=== PATIENT | female | born 1965 | race Caucasian/White ===

== ENCOUNTER 2019-09-01 14:19 | Observation (INO) | payer OTHER, SELFPAY ==
[2019-09-01 14:20] VITALS: BP 157/94; PULSE 100; RESP 18; TEMP 36.4; O2SAT 98; BMI 39.6
--- NOTE | 2019-09-01 14:34 | EKG12_ITS ---
Test Reason : CP Blood Pressure : / mmHG Vent. Rate : 102 BPM Atrial Rate : 102 BPM P-R Int : 166 ms QRS Dur : 098 ms QT Int : 338 ms P-R-T Axes : 039 010 038 degrees QTc Int : 440 ms Sinus tachycardia Otherwise normal ECG Confirmed by GABY LAWRENCE, SEGUNDO ([id number]), editor magazine ALLISON LU ([id number]) on 09/02/2019 10:33:38 AM Referred By: Laura Ayala Confirmed By:SEGUNDO GRIFFIN MD
--- NOTE | 2019-09-01 14:35 | RAD_ITS ---
STUDY: X-RAY CHEST REASON FOR EXAM: Female, 53 years old. INTERMITTENT CP FOR SEVERAL DAYS TECHNIQUE: AP COMPARISON: None. FINDINGS: EKG leads project over the chest. The lungs are clear and expanded. There is no demonstrated pleural abnormality. Normal size heart. Normal mediastinum and noe. Normal visualized pulmonary arteries. Normal visualized aortic arch and descending thoracic aorta. Normal visualized thoracic spine. Normal visualized ribs, clavicles, and shoulders. There is no demonstrated abnormality of the visualized soft tissue structures of the upper abdomen. RAD/Chest 1 View (Portable) IMPRESSION: Nonacute portable x-ray examination of the chest. Electronically Signed: Hong Locke MD (Brooks) at 14:58 EST , Service support ,
--- NOTE | 2019-09-01 14:35 | ED.VIS.GEN ---
History of Present Illness Chief Complaint: Chest Pain Detail of Chief Complaint: Chest pain, shortness of breath Informant: Patient, Significant Other Onset: Days Context: Gradual Onset Timing: Waxes and wanes Current Severity: Mild Maximum Severity: Moderate Narrative: Patient presents with dyspnea on exertion over the past week or so. She has developed over the past couple of days intermittent chest pain. It seems to be worse with exertion and better at rest. Today she describes sternal tightness that radiated up into her neck. She was vacuuming at the time and states pain resolved within 10 minutes of sitting down to rest. - Past Medical History (1) Hypertension Status: Chronic (2) Depression Status: Chronic (3) GERD (gastroesophageal reflux disease) Status: Chronic Past Medical History - Allergies and Home Meds Allergies/Adverse Reactions: Allergies No Known Allergies Allergy (Verified 09/01/19 15:12) Primary Care Physician: Rodney Doctor,Out of [NON-STAFF] - Surgical History: cholecystectomy, herniorrhaphy, hysterectomy Smoking Status: Never smoker Review of Systems General: Denies: Chills, Fever Eyes: Denies: Visual changes - bilaterally ENT: Denies: Bilateral ear pain Cardiovascular: Reports: Chest pain Respiratory: Reports: Dyspnea. Denies: Cough Gastrointestinal: Denies: Abdominal pain, Nausea, Vomiting, Diarrhea Genitourinary: Denies: Dysuria Skin: Denies: Rash Neurological: Denies: Headache Hematologic: Denies: Easy bruising Allergy: Denies: Uticaria Physical Exam Vital Signs/Narrative: Vital Signs Temp Pulse Resp BP Pulse Ox 09/01/19 14:20 97.6 F L 100 18 157/94 H 98 Inital Vital Signs reviewed: Yes General: Well nourished, Well developed Head: Normocephalic ENT: Moist mucous membranes Neck: Supple Cardiovascular: Regular rate, Regular rhythm Respiratory: No distress, CTA bilaterally Abdomen: Soft, Nontender, Nondistended Extremities: Nontender, No edema Skin: Normal color, No rash Neurological: Alert, Oriented x3 Psychological: Normal affect Diagnostic/Tx/Re-eval Impressions Chest X-Ray 09/01/19 14:35 IMPRESSION: Nonacute portable x-ray examination of the chest. Electronically Signed: Hong Locke MD (Brooks) at 14:58 EST , Service support , 09/01/19 14:35 Chest 1 View (Portable) [RAD] Stat Laboratory Results 09/01/19 09/01/19 09/01/19 14:26 14:26 14:26 WBC 9.4 RBC 4.81 Hgb 14.7 Hct 43.1 MCV 89.6 MCH 30.6 MCHC 34.1 RDW Std Deviation 41.1 RDW Coeff of Krystal 12.4 Plt Count 243 MPV 8.4 Immature Gran % (Auto) 0.300 Neut % (Auto) 52.6 Lymph % (Auto) 35.9 Colbert % (Auto) 9.4 Eos % (Auto) 1.3 Baso % (Auto) 0.5 Absolute Neuts (auto) 5.0 Absolute Lymphs (auto) 3.38 Nucleated RBC % 0 D-Dimer Quant (PE/DVT) 0.50 H Sodium 140 Potassium 3.2 L Chloride 106 Carbon Dioxide 28.0 Anion Gap 6 BUN 12 Creatinine 0.88 Estim Creat Clear Calc 69.21 Est GFR (MDRD) Af Amer 86 Est GFR (MDRD) Non-Af 71 BUN/Creatinine Ratio 13.6 Glucose 114 H Calcium 9.8 Troponin I < 0.015 B-Natriuretic Peptide 09/01/19 14:26 WBC RBC Hgb Hct MCV MCH MCHC RDW Std Deviation RDW Coeff of Krystal Plt Count MPV Immature Gran % (Auto) Neut % (Auto) Lymph % (Auto) Colbert % (Auto) Eos % (Auto) Baso % (Auto) Absolute Neuts (auto) Absolute Lymphs (auto) Nucleated RBC % D-Dimer Quant (PE/DVT) Sodium Potassium Chloride Carbon Dioxide Anion Gap BUN Creatinine Estim Creat Clear Calc Est GFR (MDRD) Af Amer Est GFR (MDRD) Non-Af BUN/Creatinine Ratio Glucose Calcium Troponin I B-Natriuretic Peptide 17.2 - EKG Initial EKG Interpretation: Sinus Tachycardia - Sinus tach at 102. No acute ischemia. - Medical Decision Making Patient was given aspirin on arrival. She had no further symptoms while in the emergency room. Blood work is unremarkable but her symptoms are certainly concerning. She was given potassium replacement here and I will discuss her case with the hospitalist for admission. ED Disposition - Plan for ED Patient: Disposition: Acute Care Hospital [facility] Diagnosis: Chest pain Referrals: [facility] Doctor,Out of [NON-STAFF] -
--- NOTE | 2019-09-01 14:37 | NURSING ---
NO OLD EKGS
[2019-09-01 14:45] LABS: Absolute Lymphocyte Count 3.38 X10^3/uL (0.83-4.51); Basophil# 0.05 X10^3/uL; Basophil% 0.5 % (0-1); Eosinophil# 0.12 X10^3/uL; Eosinophils% 1.3 % (0-5); Hematocrit 43.1 % (37-47); Hemoglobin 14.7 g/dL (12.0-15.0); Lymphocyte # 3.38 X10^3/ul (4.0); Lymphocyte % 35.9 % (19-41); Mean Corp Hgb Conc 34.1 g/dL (32-36); Mean Corpuscular Hgb 30.6 pg (27.0-32.0); Mean Corpuscular Volume 89.6 fL (81-99); Mean Platelet Vol. 8.4 fl (6.2-12.0); Monocyte# 0.88 X10^3/uL; Monocyte% 9.4 % (0-10); NRBC Flagged by Analyzer 0 % (0-5); Neutrophil # 4.95 X10^3/uL (2.7-7.7); Neutrophil % 52.6 % (47-70); Platelet Count 243 K/mm3 (150-450); RBC Distribution Width CV 12.4 % (11.6-14.6); RBC Distribution Width SD 41.1 fl (35.1-43.9); Red Blood Count 4.81 M/mm3 (4.2-5.4); White Blood Count 9.4 K/mm3 (4.4-11.0)
[2019-09-01 15:08] LABS: Anion Gap 6 (5-15); BUN 12 mg/dL (7-18); BUN/Creat Ratio 13.6 RATIO (10-20); Calcium,Total 9.8 mg/dL (8.5-10.1); Chloride 106 mmol/L (98-107); Creatinine, Serum 0.88 mg/dL (0.55-1.02); EST Glomerular Filtration Rate 71 mL/min (>60); Est Glom Filt Rate - Afr Amer 86 mL/min (>60); Estimated Creatinine Clearance 69.21 ml/min; Glucose 114 mg/dL (74-106); Potassium 3.2 mmol/L (3.5-5.1); Sodium Level 140 mmol/L (136-145)
[2019-09-01] MEDS: 0.9% Normal Saline 1,000 ML 150 ML IV (15:12)
[2019-09-01] MEDS: Aspirin 81 MG TAB.CHEW 324 MG PO (15:12)
[2019-09-01 15:15] LABS: BNP,B-Type NATRIURETIC PEPTIDE 17.2 pg/mL (0-100)
[2019-09-01 15:17] VITALS: BP 139/83; PULSE 90; RESP 18; O2SAT 96
--- NOTE | 2019-09-01 15:29 | NURSING ---
PCU CP WHITE
--- NOTE | 2019-09-01 15:47 | EKG12_ITS ---
Test Reason : CP Blood Pressure : / mmHG Vent. Rate : 084 BPM Atrial Rate : 084 BPM P-R Int : 176 ms QRS Dur : 098 ms QT Int : 372 ms P-R-T Axes : 039 005 026 degrees QTc Int : 439 ms Normal sinus rhythm Normal ECG No previous ECGs available Confirmed by GABY LAWRENCE, SEGUNDO ([id number]), production editor VENTURA HUDSON ([id number]) on 09/07/2019 9:21:29 AM Referred By: Laura Ayala Confirmed By:SEGUNDO GRIFFIN MD
--- NOTE | 2019-09-01 16:06 | PCM.HP.STD ---
Problem List (1) Chest pain Status: Acute Qualifiers: Chest pain type: unspecified Qualified Code(s): R07.9 - Chest pain, unspecified (2) Anxiety and depression Status: Chronic (3) Obesity (BMI 30-39.9) Status: Chronic (4) Former tobacco use Status: Chronic (5) Hypertension Status: Chronic Qualifiers: Hypertension type: essential hypertension Qualified Code(s): I10 - Essential (primary) hypertension (6) GERD (gastroesophageal reflux disease) Status: Chronic Qualifiers: Esophagitis presence: esophagitis presence not specified Qualified Code(s): K21.9 - Gastro-esophageal reflux disease without esophagitis History of Present Illness Date of Admission: 09/01/19 Chief Complaint: Chest pain/tightness The patient is a 53 y/o F w/ PMHx: Anxiety and Depression, Obesity, Former Tobacco use, HTN, GERD, Hx small remote PE while on OCPs, Hx Gestational DM who presents to the [facility] ED on 09/01/18 with history of midsternal chest discomfort described as a tightness over the last 2 days, intermittent, more so with activity, rated 4 out of 10 at its most severe with associated dyspnea with no nausea, emesis or diaphoresis with radiation up the right neck with improvement with rest after approximately 10 minutes. In the ED patient notes chest discomfort 0 out of 10. She notes that her blood pressure is very well controlled normally and usually 1 10-1 20 over 70s but has been increased over the last 2 days. She does state that she intermittently feels fluttering in her chest and this is been longstanding, denies racing sensation, denies any market weight loss and denies any concurrent chest discomfort with this until recently over the last 2 days as noted. Work-up in the ED included T 97.6, heart rate 100, BP 157/94, respiratory rate 18, 98% on room air, CBC unremarkable, d-dimer 0.5 and when recalculated for age normal value, BMP potassium 3.2, glucose 114, troponin less than 0.015, BNP 17.2, EKG with no acute evidence of ischemia, chest x-ray with no acute cardiopulmonary findings. In the ED patient administered aspirin, potassium supplementation 40 mill equivalent x1 as well as normal saline. Past Medical History Past Medical History (Chronic Problems): Chronic Problems Hypertension (Chronic) Depression (Chronic) GERD (gastroesophageal reflux disease) (Chronic) Anxiety and depression (Chronic) Obesity (BMI 30-39.9) (Chronic) Former tobacco use (Chronic) Allergies No Known Allergies Allergy (Verified 09/01/19 15:12) Home Medications: Ambulatory Orders Medication Instructions Recorded ALPRAZolam [Xanax] 1 mg PO BID PRN PRN 09/01/19 Amlodipine [Norvasc] 5 mg PO DAILY 09/01/19 Estradiol [Vivelle-Dot, Estraderm,] 0.05 mg TRANSDERM. .2X/WEEK 09/01/19 Multivitamin [Daily Multiple 1 ea PO DAILY 09/01/19 Vitamin] Omeprazole 40 mg PO DAILY 09/01/19 Paroxetine [Paxil] 20 mg PO DAILY 09/01/19 Surgical History: - - Hysterectomy, cholecystectomy, hernia repair. Psychiatric History: Anxiety, Depression [employer] History: No pertinent [employer] history Lives: Alone Smoking Status: Former smoker - Patient quit cigarette tobacco usage approximately 6 years prior but prior to this smoked 1 pack/day cigarette tobacco usage since she was a teenager. Tobacco Use: Non-smoker Alcohol: Occasional Drugs: None - *Family History Maternal History Items: - - Patient states she does not know her biological maternal family history. Paternal History Items: - - Patient notes that she has a paternal family history of thyroid disease. She states her father's 2 brothers have a history of heart disease, diabetes and high blood pressure. Review of Systems Constitutional: Reports: Fatigue. Denies: Chills, Fever, Weight Change HEENT: Reports: - - R jaw pain. Denies: Head Aches, Sinus Congestion, Sinus Drainage Cardiovascular: Reports: Chest Pain, Chest Tightness. Denies: Chest Pressure, Light Headedness, Orthopnea, Palpitations, Syncope Respiratory: Reports: Shortness of Breath, Shortness of breath upon exertion. Denies: Cough, Shortness of breath at rest, Sputum production, Wheezing Gastrointestinal: Denies: Abdominal Pain, Nausea, Vomiting Genitourinary: Denies: Dysuria Musculoskeletal: Denies: Joint Pain, Joint Tenderness Skin: Denies: Rash, Wounds Neurological: Denies: Numbness, Tingling, Focal weakness Psychiatric: Reports: Anxiety, Depression. Denies: Homicidal Ideations, Suicidal Ideations Hematologic/ Lymphatic: Denies: Easy Bruising, Easy Bleeding VTE Information - Inpt Only VTE Present on Admission: No VTE Mechan Device Prophylaxis: SCD's VTE Pharm Prophylaxis ordered?: Yes Patient Problems: Active and Suspected Problems Chest pain (Acute) Subjective: Seated upright in ED bed, notes chest tightness is completely resolved. Objective: Physical Examination: General: awake, alert, oriented x 3 and cooperative, seated upright in the ED bed in no apparent distress, notes chest pain has resolved. Skin: normal color, turgor, no icterus, cyanosis. HEENT: AT/NC, EOMI, PERRLA, MMM, no carotid bruits or JVD noted. Lungs: CTA bilaterally, moderate effort, moderate decrease BL bases, no rales, ronchi or wheezing. Heart: Regular rate and rhythm; no gallop, rub audible. Abdomen: soft, obese, NTTP, ND, normal BS, no HSM. Extremities: no cyanosis, clubbing, or edema. Neurological: patient awake, alert, oriented x 3; cognitive function intact; pupils equally reactive to light and accomodation; cranial nerves II-XII grossly normal, moving all 4 extremities, no focal deficits, strength preserved. Psychiatric: affect appears normal, no acute evidence of depressive or anxiety feelings. - Physical Exam Vitals/I&O's: Vital Signs Temp Pulse Resp BP Pulse Ox 97.6 F L 90 18 139/83 H 96 09/01/19 14:20 09/01/19 15:17 09/01/19 15:17 09/01/19 15:17 09/01/19 15:17 Oxygen Delivery Method Room Air Weight: 246 lb 0.574 oz Body Mass Index (BMI) 39.6 Laboratory Results 09/01/19 14:26: WBC 9.4, RBC 4.81, Hgb 14.7, Hct 43.1, MCV 89.6, MCH 30.6, MCHC 34.1, RDW Std Deviation 41.1, RDW Coeff of Krystal 12.4, Plt Count 243, MPV 8.4, Immature Gran % (Auto) 0.300, Neut % (Auto) 52.6, Lymph % (Auto) 35.9, [place] % (Auto) 9.4, Eos % (Auto) 1.3, Baso % (Auto) 0.5, Absolute Neuts (auto) 5.0, Absolute Lymphs (auto) 3.38, Nucleated RBC % 0 09/01/19 14:26: D-Dimer Quant (PE/DVT) 0.50 H 09/01/19 14:26: Sodium 140, Potassium 3.2 L, Chloride 106, Carbon Dioxide 28.0, Anion Gap 6, BUN 12, Creatinine 0.88, Estim Creat Clear Calc 69.21, Est GFR (MDRD) Af Amer 86, Est GFR (MDRD) Non-Af 71, BUN/Creatinine Ratio 13.6, Glucose 114 H, Calcium 9.8, Troponin I < 0.015 09/01/19 14:26: B-Natriuretic Peptide 17.2 Current Medications Acetaminophen (Tylenol) 650 mg PO Q6H PRN PRN PRN Reason: Non-cardiac pain (4-10/10) Hydrocodone Bitart/Acetaminophen ([place] 5mg-325mg) 1 - 2 tablet PO Q4H PRN PRN PRN Reason: Pain Score 4-10/10 Al Hydroxide/Mg Hydroxide (Mylanta Ii) 15 - 30 ml PO Q4H PRN PRN PRN Reason: INDIGESTION Albuterol Sulfate (Ventolin Aerosols) 2.5 mg INHALATION Q2H PRN PRN PRN Reason: dyspnea, wheezing Alprazolam (Xanax) 1 mg PO BID PRN PRN PRN Reason: ANXIETY Amlodipine Besylate (Norvasc) 5 mg PO DAILY IDA Aspirin (Ecotrin) 81 mg PO DAILY@0800 IDA Enoxaparin Sodium (Lovenox) 40 mg SC DAILY IDA Glucagon () 1 mg IM .X1 PRN PRN Reason: Hypoglycemia Hydralazine HCl (Apresoline Iv) 10 mg IV Q4H PRN PRN PRN Reason: SBP > 160 Sodium Chloride () 1,000 mls @ 100 mls/hr IV .Q10H IDA Dextrose (Dextrose 10%-Water) 250 mls @ 999 mls/hr IV .Q16M PRN; Protocol PRN Reason: HYPOGLYCEMIA Magnesium Hydroxide (Milk Of Magnesia) 30 ml PO DAILY PRN PRN Reason: Constipation Melatonin (Melatonin) 3 mg PO QHS PRN PRN PRN Reason: INSOMNIA Morphine Sulfate () 1 - 2 mg IV Q4H PRN PRN PRN Reason: Pain Score 1-10/10 Nitroglycerin (Nitrostat) 0.4 mg SUBLINGUAL Q5M PRN PRN Reason: CARDIAC/CHEST PAIN Ondansetron HCl (Zofran) 4 mg IV Q8H PRN PRN PRN Reason: NAUSEA/VOMITING Pantoprazole Sodium (Protonix) 40 mg PO DAILY IDA Paroxetine HCl (Paxil) 20 mg PO DAILY [facility] Assessment/Plan All Active Problems Chest pain (Acute) The patient is a 53 y/o F w/ PMHx: Anxiety and Depression, Obesity, Former Tobacco use, HTN, GERD, Hx small remote PE while on OCPs, Hx Gestational DM who presents to the [facility] ED on 09/01/18 with history of midsternal chest discomfort described as a tightness over the last 2 days, intermittent, more so with activity, rated 4 out of 10 at its most severe with associated dyspnea with no nausea, emesis or diaphoresis with radiation up the right neck with improvement with rest after approximately 10 minutes. 1. Chest Pain, Fluttering Sensation: EKG in ED sinus rhythm with no acute evidence of ischemia, CXR w/ no acute cardiopulmonary findings, initial trop normal x1. Will admit to the PCU, place on a monitored bed to assure no acute myocardial infarction with serial cardiac enzymes and EKGs. If cardiac enzymes and repeat EKGs remain unremarkable will pursue cardiac stress testing in a.m. TSH requested. FLP in AM. Magnesium pending with supplementation if necessary. ASA, NG, morphine. 2. Hypokalemia: Admission K+ 3.2, supplementation given, repeat level in AM. 3. Hypertension: Continue home regimen including Norvasc, PRN hydralazine. 4. Obesity: Weight loss and lifestyle changes encouraged, nutrition consulted. 5. Anxiety and depression: We will continue patient on Paxil as well as Xanax regimen. 6. Continue former tobacco use: Patient with 1 pack/day tobacco usage since she was a teenager, quitting approximately 6 years prior, if cardiac evaluation unremarkable would benefit from consideration of pulmonary function testing outpatient. 7. History of PE: History of very small remote PE while on OCPs, d-dimer normal for age. 8. GERD: Continue home PPI. 9. DVT prophylaxis: SCDs, Lovenox. Code Visit OBSV E&M: 64200 Initial observation care L3
[2019-09-01 16:34] VITALS: BP 141/79; PULSE 81; RESP 18; TEMP 36.6; O2SAT 100; BMI 39.4; BMI 39.5
[2019-09-01 17:04] LABS: Magnesium 1.9 mg/dL (1.6-2.6); Thyroid Stim Hormone (TSH) 3.06 uIU/mL (0.358-3.74)
[2019-09-01 17:37] VITALS: PULSE 92
[2019-09-01 18:59] VITALS: PULSE 84
[2019-09-01 19:40] VITALS: BP 136/76; PULSE 80; RESP 16; TEMP 36.4; O2SAT 98
[2019-09-01] MEDS: 0.9% Normal Saline 1,000 ML 100 ML IV (20:57)
[2019-09-01] MEDS: Pantoprazole Sodium 40 MG Tablet PO (21:00)
[2019-09-01] MEDS: amLODIPine 5 MG Tablet PO (21:00)
[2019-09-01] MEDS: Paroxetine 20 MG Tablet PO (21:00)
[2019-09-02 00:35] VITALS: BP 146/65; PULSE 74; RESP 16; TEMP 36.6; O2SAT 96
[2019-09-02 03:00] VITALS: PULSE 77
[2019-09-02 04:45] LABS: Absolute Lymphocyte Count 2.79 X10^3/uL (0.83-4.51); Absolute Neutrophil Count 3.6 X10^3/uL (2.0-7.7); Basophil# 0.04 X10^3/uL; Basophil% 0.5 % (0-1); Eosinophil# 0.13 X10^3/uL; Eosinophils% 1.8 % (0-5); Hematocrit 37.3 % (37-47); Hemoglobin 12.7 g/dL (12.0-15.0); Lymphocyte # 2.79 X10^3/ul (4.0); Lymphocyte % 38.3 % (19-41); Mean Corpuscular Hgb 30.6 pg (27.0-32.0); Mean Corpuscular Volume 89.9 fL (81-99); Mean Platelet Vol. 8.6 fl (6.2-12.0); Monocyte# 0.75 X10^3/uL; Monocyte% 10.3 % (0-10); NRBC Flagged by Analyzer 0 % (0-5); Neutrophil # 3.56 X10^3/uL (2.7-7.7); Platelet Count 204 K/mm3 (150-450); RBC Distribution Width CV 12.8 % (11.6-14.6); RBC Distribution Width SD 41.9 fl (35.1-43.9); Red Blood Count 4.15 M/mm3 (4.2-5.4); White Blood Count 7.3 K/mm3 (4.4-11.0)
[2019-09-02 05:16] LABS: Anion Gap 3 (5-15); BUN 10 mg/dL (7-18); BUN/Creat Ratio 14.2 RATIO (10-20); Chloride 109 mmol/L (98-107); Cholesterol 141 mg/dL (200); EST Glomerular Filtration Rate 92 mL/min (>60); Est Glom Filt Rate - Afr Amer 112 mL/min (>60); Estimated Creatinine Clearance 87.01 ml/min; Glucose 123 mg/dL (74-106); High Density Lipoprotein 34 mg/dL; Potassium 3.6 mmol/L (3.5-5.1); Sodium Level 141 mmol/L (136-145); Triglycerides 196 mg/dL; Very Low Density Lipoprotein 39 mg/dL (5-40)
[2019-09-02 05:17] LABS: Calcium,Total 8.2 mg/dL (8.5-10.1)
--- NOTE | 2019-09-02 05:55 | EKG12_ITS ---
Test Reason : AM EKG Blood Pressure : / mmHG Vent. Rate : 083 BPM Atrial Rate : 083 BPM P-R Int : 182 ms QRS Dur : 098 ms QT Int : 372 ms P-R-T Axes : 050 029 051 degrees QTc Int : 437 ms Normal sinus rhythm Normal ECG When compared with ECG of 01-SEP-2019 16:40, MANUAL COMPARISON REQUIRED, DATA IS UNCONFIRMED Confirmed by GABY LAWRENCE, SEGUNDO ([id number]), map editor VENTURA HUDSON ([id number]) on 09/07/2019 9:11:34 AM Referred By: Laura Ayala Confirmed By:SEGUNDO GRIFFIN MD
[2019-09-02 06:20] VITALS: BP 134/86; PULSE 82; RESP 16; TEMP 36.4; O2SAT 95
[2019-09-02] MEDS: Aspirin E.C. 81 MG Tablet PO (06:20)
[2019-09-02] MEDS: 0.9% Normal Saline 1,000 ML 100 ML IV (06:20)
[2019-09-02 06:59] VITALS: PULSE 77
[2019-09-02 07:58] VITALS: O2SAT 96
--- NOTE | 2019-09-02 09:14 | NURSING ---
pt off floor at this time for stress test
--- NOTE | 2019-09-02 10:40 | STRESSREP_ITS ---
Stress Test Report Date: 09-02-2019 Procedure: Exercise tolerance test/imaging study Indications: Chest pain Consent: Per the patient Procedure: The patient exercised on a Renny protocol for 6 minutes completing Stage II achieving a peak heart rate of 141 bpm (84 % predicted maximal heart rate) with a peak blood pressure 174/90 mmHg and a peak MET capacity of 7 METs. The baseline ECG demonstrated normal sinus rhythm. The peak exercise ECG demonstrated no obvious ECG changes. There was an isolated PVC during exercise and recovery. The functional capacity was considered average. There was no complaint of chest discomfort during exercise or recovery. The examination was discontinued secondary to dyspnea and lightheadedness. Impression: 1. Technically adequate (percent predicted maximal heart rate greater than 85%) exercise tolerance test 2. Peak exercise ECG with no obvious ECG changes 3. There was an isolated PVC during exercise and recovery 4. Nuclear images pending Myocardial perfusion imaging study: Technique: The patient was injected with 15.0 mCi of technetium 99m Cardiolite and subsequently rest SPECT Cardiolite nuclear imaging was obtained in the horizontal long, vertical long, and short axis views. The patient exercised on a Renny protocol for 6 minutes completing Stage II achieving a peak heart rate of 141 bpm (84 % predicted maximal heart rate) with a peak blood pressure 174/90 mmHg and a peak MET capacity of 7 METs. The patient was injected with 44.6 mCi of technetium 99m Cardiolite and subsequently stress SPECT Cardiolite nuclear imaging was obtained in the horizontal long, vertical long, and short axis views. A gated Cardiolite study at peak stress was obtained. Interpretation: Rest and stress SPECT Cardiolite nuclear imaging status post realignment, normalization, and attenuation correction, demonstrates relative uniform tracer uptake and myocardial perfusion appearing within normal limits. The reported LVEF is 64 %. Impression: 1. Rest and stress SPECT Cardiolite nuclear imaging demonstrate relative uniform tracer uptake and myocardial perfusion appearing within normal limits 2. The gated Cardiolite study reports an LVEF of 64 %. This note was generated with [employer] software. It may contain incorrect words, spelling, and punctuation that were not noted in checking the note before signing.
[2019-09-02 11:20] VITALS: BP 135/81; PULSE 88; RESP 16; TEMP 36.6; O2SAT 97
--- NOTE | 2019-09-02 12:38 | DCINST_ITS ---
- Discharge Diagnoses Current Active Problems: Current Active and Chronic Problems Chest pain (Acute) Anxiety and depression (Chronic) Obesity (BMI 30-39.9) (Chronic) Former tobacco use (Chronic) You will use the following diet at home:: No restrictions Discharge Activity: Return to Normal Activity Allergies/Adverse Reactions: Allergies No Known Allergies Allergy (Verified 09/01/19 15:12) Medications to take at Discharge ALPRAZolam [Xanax] 1 mg PO BID PRN PRN 09/01/19 Amlodipine [Norvasc] 5 mg PO QHS 09/01/19 Estradiol [Vivelle-Dot, Estraderm,] 0.05 mg TRANSDERM. .2X/WEEK 09/01/19 Multivitamin [Daily Multiple Vitamin] 1 ea PO DAILY 09/01/19 Omeprazole 40 mg PO QHS 09/01/19 Paroxetine [Paxil] 20 mg PO QHS 09/01/19 Primary Care Physician: Rodney Doctor,Out of [NON-STAFF] - Please follow up with your Primary Care Physician in: in 1 week Test Results: Test results from this visit will be discussed in further detail at your follow- up appointment, if applicable. Proposed Discharge Date: 09/02/19
--- NOTE | 2019-09-02 12:40 | PCM.DC.SUM ---
Discharge Date and Diagnosis - Problem List Patient Problems: Active and Suspected Problems Chest pain (Acute) Date of Admission: 09/01/19 Date of Discharge: 09/02/19 - Primary Discharge Diagnosis Active and Suspected Problems Chest pain (Acute) - Secondary Discharge Diagnosis Chronic Problems Hypertension (Chronic) Depression (Chronic) GERD (gastroesophageal reflux disease) (Chronic) Anxiety and depression (Chronic) Obesity (BMI 30-39.9) (Chronic) Former tobacco use (Chronic) Hospital Course and Treatment Imaging Results: Clinical Impression(s) from Imaging Studies Chest X-Ray 09/01/19 14:35 IMPRESSION: Nonacute portable x-ray examination of the chest. Electronically Signed: Hong Locke MD (Brooks) at 14:58 EST , Service support , Summary of Care Provided: The patient is a 53 year old F with multiple comorbidities including essential hypertension who presented with chest pain 1. Chest pain ?Patient was admitted to monitored bed did rule out OR with serial cardiac enzymes subsequently underwent a nuclear stress test which was negative for stress-induced ischemia 2. Hypertension ~ blood pressure controlled, home medications continued with dose adjustment as needed 3. GERD ?Patient is on omeprazole 4. Obesity ?With BMI of 39.5 weight loss advised 5. Depression with anxiety ?Patient is on alprazolam in addition to Paxil did continue Patient Problems: Active and Suspected Problems Chest pain (Acute) Objective: GENERAL: cooperative HEENT: Atraumatic; EYES; Anicteric, Normal Conjunctiva NECK; supple, normal thyroid, RESPIRATORY: Diminished to auscultation CARDIOVASCULAR: Regular S1 S2, GI: soft, normoactive bowel sounds, : No Renal angle tenderness; EXTREMITIES: No edema, no clubbing, MUSCULOSKELETAL: no muscle waisting NEURO: Awake; no lateralizing signs. SKIN: No Rash PSYCH; Flat affect - Physical Exam Vitals/I&O's: Vital Signs Temp Pulse Resp BP Pulse Ox 97.8 F 88 16 135/81 H 97 09/02/19 11:20 09/02/19 11:20 09/02/19 11:20 09/02/19 11:20 09/02/19 11:20 Oxygen Delivery Method Room Air Weight: 111 kg Body Mass Index (BMI) 39.4 Intake and Output for Last 24 Hours 08/31/19 09/01/19 09/02/19 23:59 23:59 23:59 Intake Total / 1166. / 1166. Balance 1165. / Laboratory Results 09/01/19 14:26: WBC 9.4, RBC 4.81, Hgb 14.7, Hct 43.1, MCV 89.6, MCH 30.6, MCHC 34.1, RDW Std Deviation 41.1, RDW Coeff of Krystal 12.4, Plt Count 243, MPV 8.4, Immature Gran % (Auto) 0.300, Neut % (Auto) 52.6, Lymph % (Auto) 35.9, [place] % (Auto) 9.4, Eos % (Auto) 1.3, Baso % (Auto) 0.5, Absolute Neuts (auto) 5.0, Absolute Lymphs (auto) 3.38, Nucleated RBC % 0 09/01/19 14:26: D-Dimer Quant (PE/DVT) 0.50 H 09/01/19 14:26: Sodium 140, Potassium 3.2 L, Chloride 106, Carbon Dioxide 28.0, Anion Gap 6, BUN 12, Creatinine 0.88, Estim Creat Clear Calc 69.21, Est GFR (MDRD) Af Amer 86, Est GFR (MDRD) Non-Af 71, BUN/Creatinine Ratio 13.6, Glucose 114 H, Calcium 9.8, Troponin I < 0.015 09/01/19 14:26: B-Natriuretic Peptide 17.2 09/01/19 14:26: Magnesium 1.9, TSH 3.06 09/01/19 17:27: Troponin I < 0.015 09/01/19 20:21: Troponin I < 0.015 09/02/19 04:38: WBC 7.3, RBC 4.15 L, Hgb 12.7, Hct 37.3, MCV 89.9, MCH 30.6, MCHC 34.0, RDW Std Deviation 41.9, RDW Coeff of Krystal 12.8, Plt Count 204, MPV 8.6, Immature Gran % (Auto) 0.100, Neut % (Auto) 49.0, Lymph % (Auto) 38.3, [place] % (Auto) 10.3 H, Eos % (Auto) 1.8, Baso % (Auto) 0.5, Absolute Neuts (auto) 3.6, Absolute Lymphs (auto) 2.79, Nucleated RBC % 0 09/02/19 04:38: Sodium 141, Potassium 3.6, Chloride 109 H, Carbon Dioxide 29.0, Anion Gap 3 L, BUN 10, Creatinine 0.70, Estim Creat Clear Calc 87.01, Est GFR (MDRD) Af Amer 112, Est GFR (MDRD) Non-Af 92, BUN/Creatinine Ratio 14.2, Glucose 123 H, Calcium 8.2 L, Triglycerides 196, Cholesterol 141, LDL Cholesterol 68, VLDL Cholesterol 39, HDL Cholesterol 34 L Current Medications Acetaminophen (Tylenol) 650 mg PO Q6H PRN PRN PRN Reason: Non-cardiac pain (4-10/10) Hydrocodone Bitart/Acetaminophen (Nelson 5mg-325mg) 1 - 2 tablet PO Q4H PRN PRN PRN Reason: Pain Score 4-10/10 Al Hydroxide/Mg Hydroxide (Mylanta Ii) 15 - 30 ml PO Q4H PRN PRN PRN Reason: INDIGESTION Albuterol Sulfate (Ventolin Aerosols) 2.5 mg INHALATION Q2H PRN PRN PRN Reason: dyspnea, wheezing Alprazolam (Xanax) 1 mg PO BID PRN PRN PRN Reason: ANXIETY Amlodipine Besylate (Norvasc) 5 mg PO QHS [facility] Last Admin: 09/01/19 21:00 Dose: 5 mg Documented by: Aspirin (Ecotrin) 81 mg PO DAILY@0800 [facility] Last Admin: 09/02/19 06:20 Dose: 81 mg Documented by: Enoxaparin Sodium (Lovenox) 40 mg SC DAILY [facility] Last Admin: 09/02/19 06:27 Dose: Not Given Documented by: Glucagon () 1 mg IM .X1 PRN PRN Reason: Hypoglycemia Hydralazine HCl (Apresoline Iv) 10 mg IV Q4H PRN PRN PRN Reason: SBP > 160 Sodium Chloride () 1,000 mls @ 100 mls/hr IV .Q10H [facility] Last Infusion: 09/02/19 09:15 Dose: 0 mls/hr Documented by: Dextrose (Dextrose 10%-Water) 250 mls @ 999 mls/hr IV .Q16M PRN; Protocol PRN Reason: HYPOGLYCEMIA Magnesium Hydroxide (Milk Of Magnesia) 30 ml PO DAILY PRN PRN Reason: Constipation Melatonin (Melatonin) 3 mg PO QHS PRN PRN PRN Reason: INSOMNIA Morphine Sulfate () 1 - 2 mg IV Q4H PRN PRN PRN Reason: Pain Score 1-10/10 Nitroglycerin (Nitrostat) 0.4 mg SUBLINGUAL Q5M PRN PRN Reason: CARDIAC/CHEST PAIN Ondansetron HCl (Zofran) 4 mg IV Q8H PRN PRN PRN Reason: NAUSEA/VOMITING Pantoprazole Sodium (Protonix) 40 mg PO QHS [facility] Last Admin: 09/01/19 21:00 Dose: 40 mg Documented by: Paroxetine HCl (Paxil) 20 mg PO QHS [facility] Last Admin: 09/01/19 21:00 Dose: 20 mg Documented by: Sodium Chloride () 10 - 40 ml IV UD PRN PRN Reason: SALINE FLUSH Discharge Diet: No Restrictions Discharge Activity: Return to Normal Activity Home Medications: Medications to take at Discharge ALPRAZolam [Xanax] 1 mg PO BID PRN PRN 09/01/19 Amlodipine [Norvasc] 5 mg PO QHS 09/01/19 Estradiol [Vivelle-Dot, Estraderm,] 0.05 mg TRANSDERM. .2X/WEEK 09/01/19 Multivitamin [Daily Multiple Vitamin] 1 ea PO DAILY 09/01/19 Omeprazole 40 mg PO QHS 09/01/19 Paroxetine [Paxil] 20 mg PO QHS 09/01/19 Primary Care Physician: Rodney Doctor,Out of [NON-STAFF] - Please follow up with your Primary Care Physician in: in 1 week Disposition: Home Minutes spent on discharge:: 35 Patient Condition:: Stable Medical Necessity - Tobacco Use Smoking Status: Former smoker Tobacco Use: Non-smoker Meaningful Use Info Meaningful Use Diagnoses (Choose all that apply): None applicable Code Visit OBSV E&M: 38075 Observation care discharge
== END 2019-09-02 12:39 | disposition home or self-care (01) ==
LOC: ED 15:21 → PCU 15:41
PROVIDERS: Admitting Provider Family Medicine; Emergency Provider Emergency Medicine; Referring Provider Family Medicine; Visit Provider Internal Medicine
DX: R07.89 Other chest pain (principal); R06.02 Shortness of breath; R06.09 Other forms of dyspnea; I10 Essential (primary) hypertension; F32.9 Major depressive disorder, single episode, unspecified; K21.9 Gastro-esophageal reflux disease without esophagitis; E66.9 Obesity, unspecified; R00.0 Tachycardia, unspecified; F41.9 Anxiety disorder, unspecified; Z79.899 Other long term (current) drug therapy; Z68.39 Body mass index [BMI] 39.0-39.9, adult; Z71.3 Dietary counseling and surveillance; Z87.891 Personal history of nicotine dependence; E87.6 Hypokalemia; Z86.718 Personal history of other venous thrombosis and embolism
CPT/HCPCS: 36415; 71045; 78452; 80048; 80061; 83735; 83880; 84443; 84484; 85025; 85379; 93005; 93017; 96360; 96361; 99218; 99251; 99284; A9500; J7030; A4216; G0378; G0463

== ENCOUNTER 2020-04-19 08:45 | Emergency (ER) | payer OTHER, SELFPAY ==
[2019-09-01 16:34] VITALS: BMI 39.4
[2020-04-19 08:46] VITALS: PULSE 105; RESP 16; TEMP 36.8; O2SAT 99; BMI 39.9
--- NOTE | 2020-04-19 09:18 | ED.DCSUM_ITS ---
- ER Visit Summary Date of Service: 04/19/20 Chief Complaint: Dizziness History of Present Illness: The patient is a 54 F who presents with dizziness that began this morning. Patient states it feels like a spinning sensation and she is off balance. Patient states nothing makes it better or worse. Patient does admit to some nausea and vomiting. Patient states the spinning sensation has improved but she still feels off balance. Patient admits to some nausea and vomiting. Patient also admits to headache but states it started several days ago. Patient states she has a history of chronic tinnitus but denies any hearing changes. Physical Examination: Vital signs are stable. Patient is afebrile. Patient is in no acute distress. Pupils are equal, round, and reactive to light bilaterally. Extraocular muscles are intact. There is no nystagmus noted. Oral mucosa is pink and moist. Neck is supple. Trachea is midline. There is no JVD noted. Heart was regular rate and rhythm. Lungs are clear and equal bilaterally. Abdomen is soft. Bowel sounds are normal. There is no tenderness. There is no rebound or guarding noted. Skin is warm dry. Cranial nerves II through XII are intact. There are no focal motor or sensory deficits noted. Extremities are intact. Mild tenderness over the left lower leg. There is no edema noted. Test Results: CBC, comprehensive metabolic profile, and urinalysis were obtained and were all within normal limits. Orthostatic vital signs were obtained and were negative. Emergency Department Course and Treatment: Patient was given a dose of meclizine here. Patient is feeling better on reevaluation. Patient was given a prescription for meclizine. Patient was instructed to follow-up with her primary care physician in 5 to 7 days. Patient understood and was agreeable with the plan. All questions were answered. Disposition: Discharge home Impression: 1. Vertigo This note was generated with Simple[employer] software. It may contain incorrect words, spelling, and punctuation that were not noted in review of the chart prior to signing ED Disposition - Plan for ED Patient: Disposition: Home or Assisted Living Diagnosis: Vertigo Instructions: ED Vertigo Unspecified Prescriptions: Meclizine HCl [Antivert] 25 mg PO TID PRN PRN #20 tab PRN Reason: Dizziness Prescription Printed Referrals: Bassam Lorenzo MD [NON-STAFF] - 5-7 Days
[2020-04-19 09:20] VITALS: BP 149/78; BP 165/100; BP 169/104; PULSE 112; PULSE 92; PULSE 96
[2020-04-19] MEDS: Meclizine HCl 25 MG Tablet PO (09:27)
[2020-04-19 09:44] LABS: Absolute Lymphocyte Count 2.01 X10^3/uL (0.83-4.51); Absolute Neutrophil Count 3.7 X10^3/uL (2.0-7.7); Basophil# 0.05 X10^3/uL; Basophil% 0.8 % (0-1); Eosinophils% 1.6 % (0-5); Hematocrit 41.1 % (37-47); Lymphocyte # 2.01 X10^3/ul (4.0); Lymphocyte % 31.4 % (19-41); Mean Corp Hgb Conc 34.1 g/dL (32-36); Mean Corpuscular Hgb 30.6 pg (27.0-32.0); Mean Corpuscular Volume 89.7 fL (81-99); Mean Platelet Vol. 8.7 fl (6.2-12.0); Monocyte# 0.56 X10^3/uL; Monocyte% 8.8 % (0-10); NRBC Flagged by Analyzer 0 % (0-5); Neutrophil # 3.66 X10^3/uL (2.7-7.7); Neutrophil % 57.1 % (47-70); Platelet Count 234 K/mm3 (150-450); RBC Distribution Width CV 12.1 % (11.6-14.6); RBC Distribution Width SD 39.5 fl (35.1-43.9); Red Blood Count 4.58 M/mm3 (4.2-5.4); White Blood Count 6.4 K/mm3 (4.4-11.0)
[2020-04-19 10:02] LABS: ALB/GLOB Ratio 0.8 RATIO (0.9-2.4); AST(SGOT) 26 U/L (15-37); Alanine Aminotransfer ALT/SGPT 52 U/L (13-56); Albumin, Serum 3.7 g/dL (3.2-5.0); Alkaline Phosphatase 127 U/L (45-117); Anion Gap 3 (5-15); BUN 11 mg/dL (7-18); Calcium,Total 9.2 mg/dL (8.5-10.1); Chloride 105 mmol/L (98-107); Creatinine, Serum 0.92 mg/dL (0.55-1.02); EST Glomerular Filtration Rate 68 mL/min (>60); Est Glom Filt Rate - Afr Amer 82 mL/min (>60); Estimated Creatinine Clearance 65.44 ml/min; Globulin 4.6 g/dL (2.2-4.2); Glucose 124 mg/dL (74-106); Potassium 3.3 mmol/L (3.5-5.1); Protein, Total 8.3 g/dL (6.4-8.2); Sodium Level 137 mmol/L (136-145)
[2020-04-19] MEDS: Ondansetron 4 MG/2 ML Vial IV (10:05)
[2020-04-19 10:35] LABS: Bacteria 0 SEEN /hpf (None Seen); Color, Urine Straw (Yellow); Glucose, Dipstick Normal (Normal); Ketone-Dipstick Negative (Negative); Leukocyte Esterase-Dipstick Negative /ul (Negative); Mucous, Urine 0 SEEN /hpf (<or=2+); Nitrite-Dipstick Negative (Negative); Occult Blood-Urine Negative /ul (Negative); Protein-Dipstick Negative (Negative); Red Blood Cells-Urine 0 SEEN /hpf (0-5); Specific Gravity, Urine 1.015 (1.002-1.030); Urine Bilirubin Dipstick Negative (Negative); Urine Clarity Clear (Clear); Urine Urobilinogen Normal (Normal); White Blood Cells 0 SEEN /hpf (0-5)
[2020-04-19 10:46] LABS: Squamous Epithelial Cells - UA 0-5 SEEN /hpf (5-10)
[2020-04-19 10:50] VITALS: BP 160/89; PULSE 92; RESP 18; O2SAT 99
[2020-04-19 11:19] VITALS: BP 154/97; PULSE 89; RESP 19; O2SAT 99
== END 2020-04-19 11:19 | disposition home or self-care (01) ==
PROVIDERS: Emergency Provider Emergency Medicine
DX: R42 Dizziness and giddiness (principal); Z79.82 Long term (current) use of aspirin
CPT/HCPCS: 80053; 81001; 85025; 96374; 99285; A4216; J2405

== ENCOUNTER 2020-12-12 12:35 | Emergency (ER) | payer OTHER, SELFPAY ==
[2020-12-12] VITALS (15 sets, daily range): BP systolic 115–155; BP diastolic 80–91; PULSE 83–95; RESP 15–27; TEMP 36.3–37; O2SAT 24–97; BMI 42.1
--- NOTE | 2020-12-12 12:53 | EKG12_ITS ---
Test Reason : STROKE Blood Pressure : / mmHG Vent. Rate : 093 BPM Atrial Rate : 093 BPM P-R Int : 192 ms QRS Dur : 100 ms QT Int : 356 ms P-R-T Axes : 048 019 037 degrees QTc Int : 442 ms Normal sinus rhythm Incomplete right bundle branch block Borderline ECG Confirmed by GABY LAWRENCE, SEGUNDO ([id number]), make up editor VENTURA HUDSON ([id number]) on 12/13/2020 1:05:47 PM Referred By: LATA Confirmed By:SEGUNDO RGIFFIN MD
--- NOTE | 2020-12-12 12:53 | CT_ITS ---
STUDY: CT HEAD STROKE PROTOCOL W/O CONTRAST INJECTION REASON FOR EXAM: Female, 55 years old. Neuro deficit, acute, stroke suspected RADIATION DOSAGE (If Supplied By Facility): CTDIvol = ( 38.43 ) mGy, DLP = ( 698.28 ) mGycm TECHNIQUE: Transaxial CT imaging of the brain was performed without administration of intravenous contrast material. Individualized dose optimization techniques were used for this CT. COMPARISON: No relevant priors. FINDINGS: Normal soft tissue structures. Normal calvarium. Normal size ventricles and extra-axial spaces for the patient''s age. Normal white matter tracts of the cerebral hemispheres. Normal basal ganglia and thalami. Normal brainstem. Normal cerebellum. There is no intracranial hemorrhage. There are no findings of an acute ischemic infarction. Normal visualized paranasal sinuses. CT/STROKE Brain/Head without Cont IMPRESSION: Normal unenhanced CT scan of the brain. N.B. : The above information has been verbally conveyed by Herson Carranza MD to Brittney Florian on 12/12/2020 13:07:42 (ET). Electronically Signed: Herson Carranza MD at 13:08 EDT , Service support ,
--- NOTE | 2020-12-12 12:54 | CT_ITS ---
STUDY: CTA HEAD AND NECK WITH CONTRAST REASON FOR EXAM: Female, 55 years old. Expressive aphasia RADIATION DOSAGE (If Supplied By Facility): CTDIvol = ( 26.06 ) mGy, DLP = ( 991.83 ) mGycm TECHNIQUE: CT angiography was performed with a multi-detector CT scanner. Data acquisition was obtained from the skull base through the vertex following intravenous administration of IV 100ML ISOVUE 370. MIP images were reconstructed from the axial data set. Post-processing of the angiographic images was performed, with multiplanar reformation and 3D reconstruction. Individualized dose optimization techniques were used for this CT. COMPARISON: No relevant priors. FINDINGS: Normal bilateral petrous carotid arteries. Normal right cavernous carotid artery with a normal supraclinoid bifurcation. Normal left cavernous carotid artery with a normal supraclinoid bifurcation. Normal right A1 segments of the anterior cerebral artery. Normal left A1 segments of the anterior cerebral artery. Normal intact anterior communicating artery (ACOM). Normal bilateral A2 segments of the anterior cerebral arteries. Normal right M1 and M2 segments of the middle cerebral arteries, with a normal M1 bifurcation. Normal left M1 and M2 segments of the middle cerebral arteries, with a normal M1 bifurcation. There is a persistent origin of the right posterior cerebral artery with absence of the posterior communicating artery (PCOM). There is a persistent origin of the left posterior cerebral artery with absence of the posterior communicating artery (PCOM). Normal bilateral vertebral arteries. Normal basilar artery with a normal basilar bifurcation. The visualized bilateral superior cerebellar (SCA) arteries are normal. Normal bilateral P1, P2 and visualized P3 segments of the posterior cerebral arteries. There is no demonstrated aneurysm of the [place] of [place]. There is no demonstrated abnormality of the visualized brain. AORTIC ARCH: Normal visualized aortic arch. Normal origins of the brachiocephalic, left common carotid, and left subclavian arteries. RIGHT CAROTID ARTERIES: Normal right common carotid artery (CCA). Normal right common carotid bulb. Normal origin of the right internal carotid (ICA) artery without a hemodynamically significant stenosis. Normal visualized cervical portion of the right internal carotid artery. Normal origin of the right external carotid artery (ECA). LEFT CAROTID ARTERIES: Normal left common carotid artery (CCA). Normal left common carotid bulb. Normal origin of the left internal carotid (ICA) artery without a hemodynamically significant stenosis. Normal visualized cervical portion of the left internal carotid artery. Normal origin of the left external carotid artery (ECA). VERTEBRAL ARTERIES: Normal bilateral vertebral arteries. CT/STROKE CTA Head AND Neck W/Con IMPRESSION: Normal CTA Head and neck with contrast. N.B. : The above information has been verbally conveyed by Herson Carranza MD to Brittney Chiqui on 12/12/2020 13:33:42 (ET). Electronically Signed: Herson Carranza MD at 13:35 EDT , Service support ,
--- NOTE | 2020-12-12 12:55 | ED.DCSUM_ITS ---
History of Present Illness Chief Complaint: Neuro S/Sx Informant: Patient Onset: Today Quality and Location: Expressive Aphasia Narrative: Patient presents via EMS secondary to weakness. On arrival nursing staff notes that she is having problems with expressive aphasia. I presented to the bedside to evaluate the patient. Patient's significant other states around 1130 this morning she started having problems getting her words out. She complains of feeling weak all over. Significant other explains that she is currently pending an MRI for possible MS. She apparently has been having increasing weakness in her legs and difficulty walking for the past several months. He states that she would occasionally have trouble with word finding but this morning was significantly worse than normal. - Past Medical History (1) Anxiety and depression Status: Chronic (2) Depression Status: Chronic (3) GERD (gastroesophageal reflux disease) Status: Chronic (4) Hypertension Status: Chronic Past Medical History - Allergies and Home Meds Allergies/Adverse Reactions: Allergies venlafaxine [From Effexor] Allergy (Verified 12/12/20 12:51) NEEDS FOLLOW-UP Primary Care Physician: Rodney Goldstein,Out of [NON-STAFF] - Prior records reviewed: Yes Surgical History: - - Hysterectomy, cholecystectomy, hernia repair. Lives: Spouse/ Significant Other Smoking Status: Never smoker - Family History Maternal Family History: Reports: - - Patient states she does not know her biological maternal family history. Paternal Family History: Reports: - - Patient notes that she has a paternal family history of thyroid disease. She states her father's 2 brothers have a history of heart disease, diabetes and high blood pressure. Review of Systems General: Denies: Chills, Fever Eyes: Denies: Visual changes - bilaterally ENT: Denies: Bilateral ear pain Cardiovascular: Denies: Chest pain Respiratory: Denies: Dyspnea, Cough Gastrointestinal: Denies: Abdominal pain, Vomiting, Diarrhea Genitourinary: Denies: Dysuria Musculoskeletal: Denies: Extremity Pain Skin: Denies: Rash Neurological: Denies: Headache Hematologic: Denies: Easy bruising, Easy bleeding Allergy: Denies: Uticaria STROKE Vital Signs/Narrative: Vital Signs Temp Pulse Resp BP Pulse Ox 12/12/20 12:41 97.3 F L 95 15 155/91 H 96 Inital Vital Signs reviewed: Yes General: Well nourished, Well developed Head: Normocephalic ENT: Moist mucous membranes Neck: Supple Cardiovascular: Regular rate, Regular rhythm Respiratory: No distress, CTA bilaterally Abdomen: Soft, Nontender Skin: Normal color Neurological: Alert, Oriented x3, - - NIH equals 4. She received 2 points for language, one-point for left leg, one-point for sensory. Psychological: Normal affect Diagnostic/Tx/Re-eval Impressions Brain CT 12/12/20 12:53 IMPRESSION: Normal unenhanced CT scan of the brain. N.B. : The above information has been verbally conveyed by Herson Carranza MD to Brittney Florian on 12/12/2020 13:07:42 (ET). Electronically Signed: Herson Carranza MD at 13:08 EDT , Service support , ADDENDUM: 12/12/20 1315 IMPRESSION: Normal unenhanced CT scan of the brain. N.B. : The above information has been verbally conveyed by Herson Carranza MD to Brittney Florian on 12/12/2020 13:07:42 (ET). Electronically Signed: Herson Carranza MD at 13:08 EDT , Service support , Head/Neck CTA 12/12/20 12:54 IMPRESSION: Normal CTA Head and neck with contrast. N.B. : The above information has been verbally conveyed by Herson Carranza MD to Brittney Florian on 12/12/2020 13:33:42 (ET). Electronically Signed: Herson Carranza MD at 13:35 EDT , Service support , ADDENDUM: 12/12/20 1342 IMPRESSION: Normal CTA Head and neck with contrast. N.B. : The above information has been verbally conveyed by Herson Carranza MD to Brittney Florian on 12/12/2020 13:33:42 (ET). Electronically Signed: Herson Carranza MD at 13:35 EDT , Service support , 12/12/20 12:53 Chest 1 View [RAD] Stat STROKE Brain/Head without Cont [CT] Stat 12/12/20 12:54 STROKE CTA Head AND Neck W/Con [CT] Stat Laboratory Results 12/12/20 12/12/20 12/12/20 12:50 12:50 12:50 WBC 6.4 RBC 4.54 Hgb 13.8 Hct 41.1 MCV 90.5 MCH 30.4 MCHC 33.6 RDW Std Deviation 41.8 RDW Coeff of Krystal 12.7 Plt Count 236 MPV 8.5 Immature Gran % (Auto) 0.500 Neut % (Auto) 49.9 Lymph % (Auto) 36.0 [place] % (Auto) 11.1 H Eos % (Auto) 1.7 Baso % (Auto) 0.8 Absolute Neuts (auto) 3.2 Absolute Lymphs (auto) 2.30 Nucleated RBC % 0 PT 12.4 INR 1.0 APTT 29.3 Sodium 138 Potassium 3.4 L Chloride 105 Carbon Dioxide 29.0 Anion Gap 4 L BUN 12 Creatinine 0.82 Estim Creat Clear Calc 72.57 Est GFR (MDRD) Af Amer 93 Est GFR (MDRD) Non-Af 77 BUN/Creatinine Ratio 14.6 Glucose 130 H Calcium 9.1 Troponin I < 0.015 - EKG Initial EKG Interpretation: Sinus Rhythm - Sinus at 93 with no acute ischemia. - Medical Decision Making Stroke Team Activated: Yes Reviewed Inclusion/Exclusion criteria: Yes Was Patient considered for Endovascular Intervention?: No IV Alteplase (t-PA) Administered: Yes No contraindications for IV Alteplase (t-PA) administration.: Yes Alteplase (t-PA) risks, benefits, alternative discussed: Yes Stroke team was called after my initial evaluation of the patient. My initial stroke score on her was 4. Patient was taken for CT CTA head and neck. The studies were unremarkable. Neurologist from [facility] beamed in and evaluated her. The time of his examination her NIH stroke score was 2 but she was still having some speech difficulties. In light of this TPA was discussed and offered. There was a delay in treatment secondary to considerable counseling and debate on treatment. Patient did agree to TPA and this was administered. Due to staffing concerns in the ICU tonight I was advised the patient would need to be transferred. Because she works at [employer] she preferred to go there. I spoke with Dr. Roca, neurology and patient has been accepted. On reevaluation at this time patient does have more fluid speech and seems to be improving. Critical care time (excluding procedures): 30-74 minutes ED Disposition - Plan for ED Patient: Disposition: [facility] Diagnosis: CVA (cerebral vascular accident) Referrals: [facility] Doctor,Out of [NON-STAFF] -
[2020-12-12 13:03] LABS: Absolute Neutrophil Count 3.2 X10^3/uL (2.0-7.7); Basophil# 0.05 X10^3/uL; Basophil% 0.8 % (0-1); Eosinophil# 0.11 X10^3/uL; Eosinophils% 1.7 % (0-5); Hematocrit 41.1 % (37-47); Hemoglobin 13.8 g/dL (12.0-15.0); Mean Corp Hgb Conc 33.6 g/dL (32-36); Mean Corpuscular Hgb 30.4 pg (27.0-32.0); Mean Corpuscular Volume 90.5 fL (81-99); Mean Platelet Vol. 8.5 fl (6.2-12.0); Monocyte# 0.71 X10^3/uL; Monocyte% 11.1 % (0-10); NRBC Flagged by Analyzer 0 % (0-5); Neutrophil # 3.19 X10^3/uL (2.7-7.7); Neutrophil % 49.9 % (47-70); Platelet Count 236 K/mm3 (150-450); RBC Distribution Width CV 12.7 % (11.6-14.6); RBC Distribution Width SD 41.8 fl (35.1-43.9); Red Blood Count 4.54 M/mm3 (4.2-5.4); White Blood Count 6.4 K/mm3 (4.4-11.0)
--- NOTE | 2020-12-12 13:10 | CM.ED ---
SOCIAL WORK Responded to Stroke Alert. Patient's significant other, Paul in room. Introduced role and reason for referral. Per Paul, patient has not been herself for a few months. Paul states patient has been sleeping a lot, really tired the last few months. Paul states patient works full-time and was at work yesterday. Emotional support and active listening provided. This worker to remain available for needs. Nader Lucas, AUTOMOTIVE ACCESSORY INSTALLER, HIDES AND SKINS COLORER
[2020-12-12 13:20] LABS: Anion Gap 4 (5-15); BUN 12 mg/dL (7-18); BUN/Creat Ratio 14.6 RATIO (10-20); Calcium,Total 9.1 mg/dL (8.5-10.1); Chloride 105 mmol/L (98-107); Creatinine, Serum 0.82 mg/dL (0.55-1.02); EST Glomerular Filtration Rate 77 mL/min (>60); Est Glom Filt Rate - Afr Amer 93 mL/min (>60); Estimated Creatinine Clearance 72.57 ml/min; Glucose 130 mg/dL (74-106); Potassium 3.4 mmol/L (3.5-5.1); Prothrombin Time (Protime)PT. 12.4 SECONDS (11.7-14.9); Sodium Level 138 mmol/L (136-145)
[2020-12-12 13:21] LABS: Partial Thromboplast Time 29.3 Seconds (24.1-36.2)
--- NOTE | 2020-12-12 14:08 | NURSING ---
called [facility] for transfer
--- NOTE | 2020-12-12 14:15 | RAD_ITS ---
STUDY: X-RAY CHEST REASON FOR EXAM: Female, 55 years old. Neuro deficit, acute, stroke suspected TECHNIQUE: Single AP portable view of the chest. COMPARISON: None. FINDINGS: EKG electrodes are seen. The lungs are clear and expanded. There is no demonstrated pleural abnormality. Normal size heart. Normal mediastinum and noe. Normal visualized pulmonary arteries. Normal visualized aortic arch and descending thoracic aorta. There are diffuse degenerative changes of the visualized thoracic spine. Normal visualized ribs, clavicles, and shoulders. There is no demonstrated abnormality of the visualized soft tissue structures of the upper abdomen. RAD/Chest 1 View IMPRESSION: No acute abnormality is seen. Electronically Signed: Herson Carranza MD at 14:32 EDT , Service support ,
--- NOTE | 2020-12-12 14:22 | ED.RN ---
Dr. Florian aware pt's gums are bleeding.
--- NOTE | 2020-12-12 14:34 | NURSING ---
[facility] T2 ICU ROOM 221 NURSE TO NURSE [phone]
--- NOTE | 2020-12-12 14:50 | NURSING ---
CALLED JON[facility], ETA 60 TO 75 MIN
[2020-12-12] MEDS: 0.9% Normal Saline 1,000 ML 100 ML IV (14:55)
[2020-12-12] MEDS: Acetaminophen 500 MG Tablet 1000 MG PO (16:05)
== END 2020-12-12 16:30 | disposition short-term general hospital (02) ==
PROVIDERS: Emergency Provider Emergency Medicine
DX: I63.9 Cerebral infarction, unspecified (principal); R29.704 NIHSS score 4; R47.01 Aphasia; R53.1 Weakness; K21.9 Gastro-esophageal reflux disease without esophagitis; I10 Essential (primary) hypertension; F41.9 Anxiety disorder, unspecified; F32.9 Major depressive disorder, single episode, unspecified; Z79.899 Other long term (current) drug therapy; Z79.82 Long term (current) use of aspirin; I45.10 Unspecified right bundle-branch block
CPT/HCPCS: 70450; 70496; 70498; 71045; 80048; 84484; 85025; 85610; 85730; 93005; 96361; 96365; 96376; 99285; J2997; J7030; Q9967; A4216